=== PATIENT | male | born 1980 | race Caucasian/White ===

== ENCOUNTER 2020-01-25 19:35 | Emergency (ER) | payer SELFPAY ==
[2020-01-25] MEDS ORDERED: Bacitracin Oint 1 GM U/D Packet TOP ONE (19:56)
--- NOTE | 2020-01-25 19:58 | EDM.PDOC ---
ED HPI GENERAL MEDICAL PROBLEM - General Chief Complaint: Laceration Stated Complaint: LEFT POINTER FINGER INJURY Time Seen by Provider: 01/25/20 19:53 Source of Information: Reports: Patient History Limitations: Reports: No Limitations - History of Present Illness INITIAL COMMENTS - FREE TEXT/NARRATIVE: pt hit a garden stack and he has a flap type laceration on the dorsum of the left pointer finger. He believes he is current with his tetanus. 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) Left Hand Pain Score (Numeric/FACES): 3 - Related Data Allergies Allergy/AdvReac Type Severity Reaction Status Date / Time No Known Allergies Allergy Verified 01/25/20 19:56 Home Meds: Home Meds NK [No Known Home Meds] 07/14/14 [History] Social & Family History - Tobacco Use Smoking Status *Q: Never Smoker Second Hand Smoke Exposure: No - Caffeine Use Caffeine Use: Reports: Soda - Alcohol Use Days Per Week of Alcohol Use: 3 Number of Drinks Per Day: 1 Total Drinks Per Week: 3 - Recreational Drug Use Recreational Drug Use: No ED ROS GENERAL - Review of Systems Review Of Systems: See Below Constitutional: Reports: No Symptoms HEENT: Reports: No Symptoms Respiratory: Reports: No Symptoms Cardiovascular: Reports: No Symptoms Endocrine: Reports: No Symptoms GI/Abdominal: Reports: No Symptoms Musculoskeletal: Reports: Other ( laceration left pointer finger. ) ED EXAM, SKIN/RASH Exam: See Below Text/Narrative:: pt arrived with pain in the left pointer finger. He has a 1/2 inch flap type laceration on the dorsal aspect of the finger. Exam Limited By: No Limitations General Appearance: Alert, Anxious Extremities: Other (1/2 inch laceration on the dorsal aspect of the finger/ ) Course - Vital Signs Last Recorded V/S: Last Vital Signs Temp 36.3 C 01/25/20 20:20 Pulse 88 01/25/20 20:20 Resp 16 01/25/20 20:20 BP 126/83 01/25/20 20:20 Pulse Ox 96 01/25/20 20:20 - Orders/Labs/Meds Meds: Medications Discontinued Medications Generic Name Dose Route Start Last Admin Trade Name Freq PRN Reason Stop Dose Admin Bacitracin 1 dose 01/25/20 19:56 01/25/20 20:11 Bacitracin Oint 1 Gm TOP 01/25/20 19:57 1 dose ONETIME ONE Administration Lidocaine HCl 5 ml 01/25/20 19:55 01/25/20 20:11 Xylocaine-Mpf 1% INJECT 01/25/20 19:56 5 ml ONETIME ONE Administration - Re-Assessments/Exams Free Text/Narrative Re-Assessment/Exam: 01/25/20 20:53 area on the pointer finger was cleansed well and infiltrated with lidocaine. It was evaluated and there was no tendon involvement/ The wound was closed in a layered manner with 5-0 chromic and 5-0 prolene. The wound was splinted and dressed with bacatracin. Departure - Departure Time of Disposition: 20:55 Disposition: Home, Self-Care 01 Condition: Fair Clinical Impression: Laceration - Discharge Information Referrals: Vanesa Toscano PA [Primary Care Provider] - Forms: ED Department Discharge Care Plan Goals: use splint for the next 6 days. keep the wound dry and do not use further ointments, keep the wound covered. suture removal in 7-8 days, do range of motion so finger does not stiffen after stitches out. motrin and tylenol for pain,. Sepsis Event Note - Focused Exam Vital Signs: Vital Signs Temp Pulse Resp BP Pulse Ox 01/25/20 20:20 36.3 C 88 16 126/83 96 01/25/20 20:07 36.3 C 88 16 126/83 96 Date Exam was Performed: 01/25/20 Time Exam was Performed: 20:58
== END 2020-01-25 21:06 | disposition home or self-care (01) ==
LOC: JP.ED 19:35
DX: S61.211A Laceration without foreign body of left index finger without damage to nail, initial encounter (principal); W26.8XXA Contact with other sharp object(s), not elsewhere classified, initial encounter
CPT/HCPCS: 12041; 99281; 99283; J2001; 12001

== ENCOUNTER 2023-12-09 06:28 | Day surgery (SDC) | payer OTHER ==
[2023-12-09] MEDS: Sodium Chloride 0.9% 1,000 ML IV SCH (07:03)
[2023-12-09] MEDS ORDERED: fentaNYL 100 MCG/2 ML SDV ONE (07:26)
[2023-12-09] MEDS ORDERED: Propofol 200 MG/20 ML SDV ONE (07:26)
[2023-12-09] MEDS ORDERED: Midazolam 1 MG/ML 2 ML SDV ONE (07:26)
== END 2023-12-09 09:00 | disposition home or self-care (01) ==
LOC: JP.SDS 06:28
PROVIDERS: ATTEND Surgery
DX: K21.9 Gastro-esophageal reflux disease without esophagitis (principal); R10.13 Epigastric pain
CPT/HCPCS: 43239; 88305; J2250; J2704; J3010; J7030